=== PATIENT | male | born 1970 | race Caucasian/White ===

== ENCOUNTER 2024-10-11 01:24 | Emergency (ER) | payer MEDICAID ==
[~2024-10-11] VITALS: Ht 162.6 cm; Wt 73.0 kg
[2024-10-11 01:26] VITALS: TEMP 98.9; O2SAT 97
[2024-10-11] MEDS: LEVETIRACETAM 500MG PREMIX 100 ML IV ONE (02:15)
[2024-10-11 02:31] LABS: BASOPHILS % 0.4 % (0.0-2.0); EOSINOPHILS % 2.2 % (0.0-5.0); HEMATOCRIT. 43.5 % (42.0-52.0); LYMPHOCYTES % 18.1 % (20.0-50.0); MEAN CORPUSCULAR HEMOGLOBIN 32.3 pg (28.0-32.0); MEAN CORPUSCULAR HGB CONC 34.4 g/dL (31.0-37.0); MEAN CORPUSCULAR VOLUME 93.9 fL (80.0-94.0); MEAN PLATELET VOLUME 11.1 fl (7.4-10.4); MONOCYTES % 7.4 % (2.0-8.0); NEUTROPHILS % 71.9 % (40.0-76.0); PLATELET 205 x1000/uL (130-400); RED BLOOD CELL COUNT 4.63 mill/uL (4.7-6.1); RED CELL DISTRIBUTION WIDTH 13.9 % (11.6-14.6); WHITE BLOOD COUNT 8.2 x1000/uL (4.5-11.0)
[2024-10-11 02:35] LABS: CHLORIDE 108 mEq/L (98-107); POTASSIUM 3.4 mEq/L (3.5-5.1); SODIUM 141 mEq/L (136-145)
[2024-10-11 02:36] LABS: CARBON DIOXIDE 24 mEq/L (21-32)
[2024-10-11 02:37] LABS: CALCIUM 8.7 mg/dL (8.7-10.4)
[2024-10-11 02:41] LABS: CREATININE 1.2 mg/dL (0.6-1.3); GLUCOSE 116 mg/dL (70-105); UREA NITROGEN BLOOD 14 mg/dL (9-23)
[2024-10-11 03:13] LABS: ETHANOL BLOOD < 10 mg/dL (<10)
[2024-10-11 04:00] VITALS: BP 145/77; PULSE 76; RESP 20; O2SAT 100
== END 2024-10-11 04:00 | disposition home or self-care (01) ==
LOC: ER 01:24
DX: G40.909 Epilepsy, unspecified, not intractable, without status epilepticus (principal); I10 Essential (primary) hypertension
CPT/HCPCS: 80048; 80320; 85025; 36415; 96365; 99284; J1953; G0480